=== PATIENT | female | born 2000 | race Caucasian/White ===

== ENCOUNTER 2021-01-03 11:07 | Emergency (ER) | payer SELFPAY ==
[~2021-01-03] VITALS: Ht 157.5 cm; Wt 83.8 kg
--- NOTE | 2021-01-03 11:56 | NUR ---
DELMY AND DELMY VAX BEGNINNING OF THIS YEAR.
[2021-01-03 13:12] LABS: BASOPHILS % (AUTO) 0 % (0-1); EOSINOPHILS % (AUTO) 0 % (1-7); LYMPHOCYTES % (AUTO) 17 % (22-44); MEAN CORPUSCULAR HEMOGLOBIN 21.1 pg (27.0-34.8); MEAN CORPUSCULAR HGB CONC 31.3 g/dL (32.4-35.8); MEAN PLATELET VOLUME 8.7 fL (7.4-10.4); MONOCYTES % (AUTO) 12 % (2-9); NEUTROPHILS % (AUTO) 71 % (42-75); PLATELET COUNT 209 x10^3/uL (130-400); RED BLOOD COUNT 4.76 x10^6/uL (3.82-5.3)
--- NOTE | 2021-01-03 13:22 | NUR ---
PT AMBULATES TO BATHROOM FOR UA SAMPLE
[2021-01-03 13:27] LABS: CALCIUM 8.3 mg/dL (8.5-10.1); CHLORIDE 107 mmol/L (98-107)
[2021-01-03 13:31] LABS: ANION GAP 5 mmol/L (5-15); CREATININE 0.78 mg/dL (0.55-1.02)
[2021-01-03 14:04] LABS: MICROSCOPIC INDICATED
[2021-01-03 14:12] LABS: ANISOCYTOSIS 1+; HYPOCHROMIA 1+; MICROCYTOSIS 2+; OVALOCYTES 1+
[2021-01-03 14:13] LABS: <PLATELET ESTIMATE> ADEQUATE; <PLT MORPHOLOGY> NORMAL PLT MORPH
[2021-01-03 14:22] LABS: RAPID INFLUENZA A Negative (Negative); RAPID INFLUENZA B Negative (Negative)
[2021-01-03 14:58] VITALS: BP 115/72
--- NOTE | 2021-01-03 14:59 | NUR ---
UP FOR RECHECK, VSS, TAKING PO FLUIDS.
== END 2021-01-03 15:46 | disposition home or self-care (01) ==
LOC: ED 11:56
DX: U07.1 COVID-19 (principal); B34.9 Viral infection, unspecified; R05 Cough; R00.0 Tachycardia, unspecified
CPT/HCPCS: 36415; 71045; 80048; 80299; 81001; 85025; 87400; 87635; 99284; U0003; U0005